=== PATIENT | male | born 1970 | race Two or more races ===

== ENCOUNTER 2017-09-29 01:55 | Emergency (ER) | payer MEDICAID, OTHER ==
[~2017-09-29] VITALS: Ht 167.6 cm; Wt 76.2 kg
[~2017-09-29 01:55] MED LIST: HYDR12.5 PO
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
--- NOTE | 2017-09-29 02:27 | NUR ---
[employer] CALLED, [id number]. MANAGER CAR STATES "WILL SEND [employer] TO SPEAK TO PATIENT".
[2017-09-29] MEDS ORDERED: HYDROCODONE/APAP 5/325MG 1 EACH TABLET ONE (02:57)
[2017-09-29] MEDS ORDERED: HYDROCODONE/APAP 5/325MG 1 EACH TABLET PO ONE (03:00)
--- NOTE | 2017-09-29 04:09 | NUR ---
[facility] OFFICERS AT BEDSIDE TALKING TO PT.
[2017-09-29 04:41] VITALS: BP 153/108
--- NOTE | 2017-09-29 04:42 | NUR ---
Patient discharged to home in stable condition. Written and verbal after care instructions given. Patient verbalizes understanding of instruction. PT ambulatory with a steady gait
== END 2017-09-29 04:42 | disposition home or self-care (01) ==
LOC: ER 01:57
DX: S00.12XA Contusion of left eyelid and periocular area, initial encounter (principal); S20.212A Contusion of left front wall of thorax, initial encounter; S00.01XA Abrasion of scalp, initial encounter; H20.9 Unspecified iridocyclitis; I10 Essential (primary) hypertension; Y04.1XXA Assault by human bite, initial encounter; Y93.89 Activity, other specified; Y92.89 Other specified places as the place of occurrence of the external cause; Y99.8 Other external cause status
CPT/HCPCS: 70450-TC; 70486-TC; 71100-TC; A4606; Z7610

== ENCOUNTER 2018-08-23 05:41 | Emergency (ER) | payer OTHER ==
[~2018-08-23] VITALS: Ht 170.2 cm; Wt 72.6 kg
--- NOTE | 2018-08-23 05:56 | NUR ---
BIBSELF C/O L FOOT PAIN/REDNESS/SWELLING X 5 DAYS. DENIES TRAUMA. PT IS AOX4, AMB, HYPERTENSIVE, RR EVEN AND UNLABORED ON RA. PROVIDED BLANKETS FOR COMFORT, WILL CONT TO MONITOR. READY FOR EVAL.
--- NOTE | 2018-08-23 07:21 | NUR ---
REPORT GIVEN TO JOSE NIXON FOR YUKO
--- NOTE | 2018-08-23 07:24 | NUR ---
RECEIVED REPORT FROM JOSE HOGAN FOR [facility]. AAOX4, NOT IN RESPIRATORY DISTRESS, NOTED SWELLING ON L LOWER EXTREMITY, AWAITING ULTRASOUND PROCEDURE.
--- NOTE | 2018-08-23 07:26 | NUR ---
TECH AT BEDSIDE FOR ULTRASOUND.
--- NOTE | 2018-08-23 08:00 | NUR ---
PT. VERBALIZED UNDERSTANDING OF AFTERCARE INSTRUCTIONS.Patient discharged to home in stable condition. Written and verbal after care instructions given. Patient verbalizes understanding of instruction.
[2018-08-23 08:05] VITALS: BP 154/99
== END 2018-08-23 08:06 | disposition home or self-care (01) ==
LOC: ER 05:48
DX: L03.116 Cellulitis of left lower limb (principal); I10 Essential (primary) hypertension; F17.200 Nicotine dependence, unspecified, uncomplicated; Z79.899 Other long term (current) drug therapy
CPT/HCPCS: 93971-TC

== ENCOUNTER 2018-09-14 05:52 | Emergency (ER) | payer OTHER ==
[~2018-09-14] VITALS: Ht 170.2 cm; Wt 76.7 kg
[2018-09-14 05:59] VITALS: BP 156/105
== END 2018-09-14 06:24 | disposition home or self-care (01) ==
LOC: ER 05:53
DX: L03.116 Cellulitis of left lower limb (principal); I10 Essential (primary) hypertension; F17.200 Nicotine dependence, unspecified, uncomplicated; Z79.899 Other long term (current) drug therapy

== ENCOUNTER 2019-06-06 16:43 | Emergency (ER) | payer MEDICAID, OTHER ==
[~2019-06-06] VITALS: Ht 170.2 cm; Wt 74.8 kg
[2019-06-06 16:53] VITALS: BP 145/126
[2019-06-06] MEDS ORDERED: KETOROLAC TROMETHAMINE INJ 30 MG/ML VIAL ONE (17:12)
[2019-06-06] MEDS ORDERED: PENICILLIN G BENZATHINE 2.4 MMU/4 ML ML IM ONE ×2 (17:12→17:30)
[2019-06-06] MEDS ORDERED: DEXAMETHASONE SOD PHOSPHATE 10 MG/ML VIAL ONE (17:12)
[2019-06-06] MEDS ORDERED: KETOROLAC TROMETHAMINE INJ 60 MG/2 ML VIAL IM ONE (17:30)
[2019-06-06] MEDS ORDERED: DEXAMETHASONE SOD PHOSPHATE 4 MG/ML VIAL IM ONE (17:30)
== END 2019-06-06 17:29 | disposition home or self-care (01) ==
LOC: ER 16:44
DX: J02.9 Acute pharyngitis, unspecified (principal); I10 Essential (primary) hypertension; F17.200 Nicotine dependence, unspecified, uncomplicated; Z79.899 Other long term (current) drug therapy
CPT/HCPCS: 96372 ×3; 99283; J0558; J1100; J1885

== ENCOUNTER 2019-09-26 23:14 | Emergency (ER) | payer MEDICAID ==
--- NOTE | 2019-09-26 23:23 | NUR ---
CALLED FOR TRIAGE . PT STATED HE'S WILLING TO LEAVE AND DOES NOT WANNA SEE A DOCTOR. RISK VS BENEFITS EXPLAINED TO THE PT.
== END 2019-09-26 23:26 | disposition left against medical advice (07) ==
LOC: ER 23:19
DX: Z53.21 Procedure and treatment not carried out due to patient leaving prior to being seen by health care provider (principal)

== ENCOUNTER 2019-09-27 00:54 | Emergency (ER) | payer MEDICAID ==
[~2019-09-27] VITALS: Ht 157.5 cm; Wt 77.1 kg
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
--- NOTE | 2019-09-27 01:13 | NUR ---
CALLED [employer] TO MAKE REPORT. PER [employer] C[employer]IFIED [employer]IST [id number] AND PT'S PREFERANCE, PT WILL FOLLOW UP W/ [employer] DPT TO MAKE THE REPORT AFTER DISCHARGE. PT VERBALIZED UNDERASTANDING.
[2019-09-27] MEDS ORDERED: TDAP [DIPH/PERTUSSIS/TET] 0.5 ML VIAL IM ONE ×2 (01:25→01:30)
--- NOTE | 2019-09-27 01:42 | NUR ---
BACK FROM CT
--- NOTE | 2019-09-27 02:48 | NUR ---
Patient discharged to home in stable condition. Written and verbal after care instructions given. Patient verbalizes understanding of instruction.Pt ambulatory with a steady gait
[2019-09-27 02:50] VITALS: BP 127/79
== END 2019-09-27 02:50 | disposition home or self-care (01) ==
LOC: ER 00:55
DX: S00.03XA Contusion of scalp, initial encounter (principal); F17.200 Nicotine dependence, unspecified, uncomplicated; W22.8XXA Striking against or struck by other objects, initial encounter; Y93.89 Activity, other specified; Y92.89 Other specified places as the place of occurrence of the external cause; Y99.8 Other external cause status
CPT/HCPCS: 36415; 70450-TC; 90715; G0480

== ENCOUNTER 2019-12-03 14:50 | Emergency (ER) | payer MEDICAID ==
[~2019-12-03] VITALS: Ht 162.6 cm; Wt 59.0 kg
[2019-12-03 15:05] VITALS: BP 159/96
--- NOTE | 2019-12-03 15:32 | NUR ---
Pt able to wash face/hands under running water. Encouraged to change clothes and shower when home Patient discharged to home in stable condition. Written and verbal after care instructions given. Patient verbalizes understanding of instruction.
== END 2019-12-03 15:34 | disposition home or self-care (01) ==
LOC: ER 14:52
DX: T65.893A Toxic effect of other specified substances, assault, initial encounter (principal); F17.200 Nicotine dependence, unspecified, uncomplicated; Y92.89 Other specified places as the place of occurrence of the external cause

== ENCOUNTER 2019-12-25 04:34 | Emergency (ER) | payer MEDICAID ==
[~2019-12-25] VITALS: Ht 162.6 cm; Wt 59.0 kg
[2019-12-25 04:34] VITALS: BP 163/103
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
== END 2019-12-25 05:03 | disposition home or self-care (01) ==
LOC: ER 04:34
DX: M62.838 Other muscle spasm (principal); F17.200 Nicotine dependence, unspecified, uncomplicated; Z59.0 Homelessness

== ENCOUNTER 2024-02-21 01:06 | Emergency (ER) | payer MEDICAID, OTHER ==
[~2024-02-21] VITALS: Ht 170.2 cm; Wt 76.7 kg
[2024-02-21] MEDS ORDERED: KETOROLAC TROMETHAMINE INJ 30 MG/ML VIAL ONE (01:41)
[2024-02-21] MEDS: KETOROLAC TROMETHAMINE INJ 60 MG/2 ML VIAL IM ONE (01:48)
[2024-02-21] MEDS ORDERED: NAPR-1009 PO (02:21)
[2024-02-21 02:38] VITALS: BP 134/70; TEMP 98.5; O2SAT 99
== END 2024-02-21 02:39 | disposition home or self-care (01) ==
LOC: ER 01:14
DX: S43.491A Other sprain of right shoulder joint, initial encounter (principal); F19.10 Other psychoactive substance abuse, uncomplicated; F17.200 Nicotine dependence, unspecified, uncomplicated; W22.8XXA Striking against or struck by other objects, initial encounter; Y93.89 Activity, other specified; Y92.488 Other paved roadways as the place of occurrence of the external cause; Y99.8 Other external cause status
CPT/HCPCS: 99283; 96372; 73030; J1885

== ENCOUNTER 2024-10-18 04:35 | Emergency (ER) | payer OTHER ==
[~2024-10-18] VITALS: Ht 170.2 cm; Wt 76.2 kg
[~2024-10-18 04:35] MED LIST changes: +NAPR-1009 PO
[2024-10-18] MEDS ORDERED: LISI20TA30 PO (04:57)
[2024-10-18] MEDS ORDERED: ALBU18HF2 INH (04:57)
[2024-10-18] MEDS ORDERED: AMLO-213 PO (04:57)
[2024-10-18 05:01] VITALS: BP 162/116; TEMP 98.2; O2SAT 98
== END 2024-10-18 05:01 | disposition home or self-care (01) ==
LOC: ER 04:35
DX: I10 Essential (primary) hypertension (principal); Z76.0 Encounter for issue of repeat prescription; F17.200 Nicotine dependence, unspecified, uncomplicated; Z79.899 Other long term (current) drug therapy